=== PATIENT | male | born 1985 | race Two or more races ===

== ENCOUNTER 2020-06-19 21:52 | Emergency (ER) | payer OTHER ==
[~2020-06-19] VITALS: Ht 177.8 cm; Wt 61.2 kg
--- NOTE | 2020-06-19 22:08 | NUR ---
C/O RT HAND PAIN AFTER TRYING TO CATCH HIMSELF FROM A FALL TO ER BED 3
[2020-06-19] MEDS ORDERED: IBUP-1955 PO (23:09)
[2020-06-19 23:26] VITALS: BP 135/71
--- NOTE | 2020-06-19 23:26 | NUR ---
Patient discharged to home in stable condition. Written and verbal after care instructions given. Patient verbalizes understanding of instruction.
== END 2020-06-19 23:26 | disposition home or self-care (01) ==
LOC: ER 21:57
DX: S62.231A Other displaced fracture of base of first metacarpal bone, right hand, initial encounter for closed fracture (principal); Z79.899 Other long term (current) drug therapy; W01.0XXA Fall on same level from slipping, tripping and stumbling without subsequent striking against object, initial encounter; Y93.89 Activity, other specified; Y92.89 Other specified places as the place of occurrence of the external cause; Y99.8 Other external cause status
CPT/HCPCS: 73110; 73130-TC